=== PATIENT | male | born 1990 | race Caucasian/White ===

== ENCOUNTER 2020-05-11 13:50 | Emergency (ER) | payer OTHER ==
[~2020-05-11] VITALS: Ht 162.6 cm; Wt 58.1 kg
[2020-05-11] MEDS ORDERED: TETANUS-DIPTH-ACEL PERTUSSIS 0.5ML SYR Tdap IM ONE (14:15)
[2020-05-11 14:35] VITALS: BP 119/79
[2020-05-11] MEDS ORDERED: HYDROcodone-ACET 10/325MG TAB PO ONE (15:15)
== END 2020-05-11 15:53 | disposition home or self-care (01) ==
LOC: ER 13:50
DX: S42.032A Displaced fracture of lateral end of left clavicle, initial encounter for closed fracture (principal); F17.210 Nicotine dependence, cigarettes, uncomplicated; V86.56XA Driver of dirt bike or motor/cross bike injured in nontraffic accident, initial encounter; Y93.89 Activity, other specified; Y92.89 Other specified places as the place of occurrence of the external cause; Y99.8 Other external cause status
CPT/HCPCS: 71046; 71101; 73000; 73030; 90471; 90715